=== PATIENT | female | born 1970 | race Asian ===

== ENCOUNTER → 2018-07-09 | Day surgery (SDC) | payer MEDICAID ==
[~2018-07-09] VITALS: Ht 165.1 cm; Wt 89.3 kg
[2018-07-09 08:53] VITALS: BP 111/69
[2018-07-09 15:47] VITALS: BP 126/64
== END | disposition home or self-care (01) ==
LOC: DS 08:22 → OR 11:00 → DS 11:00
PROVIDERS: Surgery
PROC: 0FT44ZZ Resection of Gallbladder, Percutaneous Endoscopic Approach (ICD-10-PCS; principal; 2018-07-09 11:00)
DX: K80.12 Calculus of gallbladder with acute and chronic cholecystitis without obstruction (principal); I10 Essential (primary) hypertension; E11.9 Type 2 diabetes mellitus without complications; E03.9 Hypothyroidism, unspecified
CPT/HCPCS: 82962; J0330; J0690; J1170; J2405; J2704; J2710; J3010; J3490; J7030

== ENCOUNTER 2018-07-17 00:22 | Emergency (ER) | payer OTHER ==
[~2018-07-17] VITALS: Ht 165.1 cm; Wt 88.9 kg
[2018-07-17 00:27] VITALS: Ht 165.1 cm; Wt 88.9 kg
[2018-07-17 01:09] LABS: BASOPHIL % 0.3 % (0-2); PLATELET COUNT 258 x10^3mcL (130-400); RED CELL DISTRIBUTION WIDTH 13.3 % (11.5-14.5)
[2018-07-17 01:18] LABS: CALCIUM 9.1 mg/dL (8.5-10.1); CARBON DIOXIDE 26.4 mmol/L (21-32); CHLORIDE SERUM 102 mmol/L (98-107); GFR1 > 60 mL/min; GLUCOSE SERUM 355 mg/dL (74-106); POTASSIUM SERUM 3.9 mmol/L (3.5-5.1); SODIUM SERUM 137 mmol/L (136-145)
[2018-07-17 01:25] LABS: ALBUMIN 3.1 g/dL (3.4-5.0); ALKALINE PHOSPHATASE 156 U/L (46-116); ALT/SGPT 88 U/L (14-59); AST/SGOT 28 U/L (15-37); BILIRUBIN TOTAL 0.29 mg/dL (0.20-1.00); LIPASE 507 IU/L (73-393); TOTAL PROTEIN, SERUM 7.3 g/dL (6.4-8.2)
[2018-07-17 05:09] VITALS: BP 157/81
== END 2018-07-17 05:09 | disposition left against medical advice (07) ==
LOC: ED 00:22
PROVIDERS: Emergency Medicine
DX: R07.89 Other chest pain (principal); R10.9 Unspecified abdominal pain; M54.9 Dorsalgia, unspecified; R06.02 Shortness of breath; E11.9 Type 2 diabetes mellitus without complications; Z90.49 Acquired absence of other specified parts of digestive tract
CPT/HCPCS: 36415; 82962; J0500; J1885; Q0092

== ENCOUNTER → 2018-08-21 | Day surgery (SDC) | payer MEDICAID ==
[~2018-08-21] VITALS: Ht 165.1 cm; Wt 87.1 kg
[2018-08-21 08:06] VITALS: BP 110/72
[2018-08-21 08:43] LABS: BASOPHIL % 0.4 % (0-2); PLATELET COUNT 273 x10^3mcL (130-400)
[2018-08-21 08:48] LABS: RED CELL DISTRIBUTION WIDTH 15.4 % (11.5-14.5)
[2018-08-21 08:50] LABS: CALCIUM 9.6 mg/dL (8.5-10.1); CARBON DIOXIDE 23.9 mmol/L (21-32); CREATININE SERUM 1.1 mg/dL (0.6-1.0); POTASSIUM SERUM 4.4 mmol/L (3.5-5.1)
== END | disposition home or self-care (01) ==
LOC: CT 08-20 11:05 → DS 07:37 → CT 09:00 → EDSTATUS 09:00
PROVIDERS: Internal Medicine Gastroenterology
DX: K82.8 Other specified diseases of gallbladder (principal); Z90.49 Acquired absence of other specified parts of digestive tract
CPT/HCPCS: Q9967